=== PATIENT | male | born 1970 | race Caucasian/White ===

== ENCOUNTER 2017-11-13 18:44 | Emergency (ER) | payer SELFPAY ==
--- NOTE | 2017-11-13 19:48 | UC ---
Respiratory Complaint HPI - HPI Summary HPI Summary: 47-year-old male presents with 2 week history of upper respiratory symptoms and a nonproductive cough. States started with some nasal congestion and clear nasal drainage but then developed into the nonproductive cough. States over the last 3-4 days has developed some tightness in the chest, shortness of breath , and worsening of the cough. Denies fever, chills, chest pain, palpitations, nausea, or vomiting. He is a pack-a-day smoker. - History of Current Complaint Chief Complaint: UCRespiratory Stated Complaint: CONGESTION,COUGH,COLD Time Seen by Provider: 11/13/17 19:28 Hx Obtained From: Patient Onset/Duration: Gradual Onset, Lasting Weeks - 2 Severity Currently: Moderate Pain Intensity: 3 Character: Cough: Nonproductive Aggravating Factors: Deep Breaths Alleviating Factors: Nothing Associated Signs And Symptoms: Positive: Dyspnea, URI, Nasal Congestion. Negative: Fever, Chills, Wheezing, Hemoptysis, Dizziness - Allergies/Home Medications Allergies/Adverse Reactions: Allergies Allergy/AdvReac Type Severity Reaction Status Date / Time Penicillins Allergy Unknown Unknown Verified 11/13/17 19:22 Reaction Details Home Medications: Home Medications Eucalyptus/Menthol [Cough Drops] PRN 11/13/17 [History] PMH/Surg Hx/FS Hx/Imm Hx Previously Healthy: Yes - Denies significant PMH - Surgical History Surgical History: Yes Surgery Procedure, Year, and Place: Right hand carpal tunnels surgery many years ago - Family History Family History: Noncontributory - Social History Occupation: Employed Full-time Lives: With Family Alcohol Use: Occasionally Substance Use Type: None Smoking Status (MU): Current Every Day Smoker Type: Cigarettes Amount Used/How Often: 1 PPD Length of Time of Smoking/Using Tobacco: 30+ years - Immunization History Most Recent Tetanus Shot: needs a tetanus Review of Systems Constitutional: Negative Skin: Negative Eyes: Negative ENT: Nasal Discharge Respiratory: Shortness Of Breath, Cough Cardiovascular: Negative Gastrointestinal: Negative Is Patient Immunocompromised?: No All Other Systems Reviewed And Are Negative: Yes Physical Exam Triage Information Reviewed: Yes Appearance: Well-Appearing, No Pain Distress, Well-Nourished Vital Signs: Initial Vital Signs Temp 96.1 F 11/13/17 19:17 Pulse 79 11/13/17 19:17 Resp 20 11/13/17 19:17 BP 138/88 11/13/17 19:17 Pulse Ox 98 11/13/17 19:17 Eyes: Positive: Conjunctiva Clear. Negative: Discharge ENT: Positive: Hearing grossly normal, Pharyngeal erythema - Mild with cobblestoning, Nasal congestion, TMs normal, Hoarse voice, Uvula midline. Negative: Nasal drainage, Tonsillar swelling, Tonsillar exudate, Muffled voice, Sinus tenderness Neck: Positive: Supple, Nontender, No Lymphadenopathy Respiratory: Positive: Chest non-tender, No respiratory distress, Wheezing - Diffuse bilateral wheezing. Negative: Crackles, Rhonchi Cardiovascular: Positive: RRR, No Murmur, Pulses Normal, Brisk Capillary Refill Abdomen Description: Positive: Nontender, No Organomegaly, Soft. Negative: Distended, Guarding Neurological: Positive: Alert Skin Exam: Normal UC Diagnostic Evaluation - Laboratory O2 Sat by Pulse Oximetry: 98 Re-Evaluation - Re-Evaluation First Eval Re-Evaluation Time: 20:30 Change: Improved Comment: Post albuterol nebulizer treatment patient reports breathing much easier and chest tightness subsided. Bilateral breath sounds clear. Respiratory Course/Dx - Course Course Of Treatment: 47 year old male presents with 2 week history of URI symptoms including a non-productive cough. Develop shortness of breath, chest tightness, and worsening of cough over past 3-4 days. Long-term 1 PPD smoker. Exam remarkable for diffuse wheezing. Patient was administered albuterol nebulizer x 1 with good response. Will treat patient with course of azithromycin , 5 day course prednisone, and PRN albbuterol inhaler. He was given first dose of antibiotic and prednisone in the clinic. There were no albuterol inhalers available therefore he was sent home with 2 doses of the albuterol nebuilizer solution and tubing to use with his daughter's nebulizer pump should he need it during the night until he can fill the prescriptions that were sent. He is to follow up in the [facility] in 5 days for recheck of symptoms. Warning symptoms were discussed with patient. Verbalizes understanding and agrees with POC. - Differential Dx/Diagnosis Differential Diagnosis/HQI/PQRI: Asthma, Bronchitis, Lower Resp Infection Provider Diagnoses: acute bronchitis, reactive airway disease not asthma, elevated blood pressure reading Discharge - Sign-Out/Discharge Documenting (check all that apply): Patient Departure All imaging exams completed and their final reports reviewed: No Studies - Discharge Plan Condition: Stable Disposition: HOME Prescriptions: Albuterol HFA INHALER* [Ventolin HFA Inhaler*] 2 puff INH Q4H PRN #1 mdi PRN Reason: Sob/Wheezing Azithromycin TAB* [Zithromax TAB (Z-FARHAN) 250 mg #6 tabs] 250 mg PO DAILY #4 tab predniSONE TAB* [Deltasone 20 MG TAB*] 40 mg PO DAILY #8 tab Patient Education Materials: How to Stop Smoking (ED), Acute Bronchitis (ED), Reactive Airways Disease (ED) Referrals: No Primary Care Phys,NOPCP [Primary Care Provider] - [facility] [place] [Outside] - 5 Days (For recheck of symptoms. Call for appointment.) Additional Instructions: Considering the duration of your symptoms and the new onset of wheezing we will treat your respiratory infection with a course of antibiotics called azithromycin. We gave you the first dose here in the clinic. Starting tomorrow take 1 tablet daily for next 4 days. This is a long-acting antibiotic and will remain in your system for up to 10 days. We will also start you on a steroid called prednisone to help reduce the inflammation in your airways that is causing the wheezing. We gave you the first dose tonight. Starting tomorrow take 2 tabs once a day for next 4 days. We have also provided you with an albuterol inhaler to use. Take 2 puffs every 4 -6 hours as needed for any shortness of breath, wheezing, or coughing fits. Follow up with the [facility] in 5 days for a recheck of your symptoms. Call for an appointment. You blood pressure was slightly elevated in the clinic tonight. It is recommended that you establish with a primary care provider and have this rechecked. I have provided you with the number for the [facility] Referral service if you need help establishing with a provider. Seek immediate medical attention if you have fever greater than 100.5 F, have persistent chest pain, develop shortness of breath, become weak or dizzy, or have any worsening of symptoms. - Billing Disposition and Condition Condition: STABLE Disposition: Home - Attestation Statements Provider Attestation: Per institutional requirements, I have reviewed the chart, however, I was not consulted specifically or made aware of this patient by the midlevel provider. I did not personally evaluate, interact with , or disposition this patient.
[2017-11-13] MEDS ORDERED: Albuterol 2.5 MG/3 ML NEB.SOL* (0.083%) INH ONE ×2 (19:57→20:40)
[2017-11-13] MEDS ORDERED: Azithromycin TAB* 250 MG PO ONE (20:26)
[2017-11-13] MEDS ORDERED: Albuterol HFA INHALER* 8 gm MDI INH ONE (20:26)
[2017-11-13] MEDS ORDERED: predniSONE TAB* 20 MG PO ONE (20:26)
[2017-11-13 20:32] VITALS: BP 148/78
[2017-11-13] MEDS ORDERED: predniSONE TAB* 10 MG PO ONE (20:32)
== END 2017-11-13 21:10 | disposition home or self-care (01) ==
LOC: UCEAST 18:44
DX: J20.9 Acute bronchitis, unspecified (principal); J98.8 Other specified respiratory disorders; R03.0 Elevated blood-pressure reading, without diagnosis of hypertension; F17.210 Nicotine dependence, cigarettes, uncomplicated; Z88.0 Allergy status to penicillin
CPT/HCPCS: 99203; A9270-GY; G0463; J7512